=== PATIENT | female | born 1965 | race Caucasian/White ===

== ENCOUNTER → 2017-11-28 | Outpatient (CLI) | payer OTHER ==
[~2017-11-28] MED LIST: IOHEXOL 240 MG/ML 50ML VIAL. ONE; IOHEXOL 300 MG/ML 75 ML VIAL. IV ONE
--- NOTE | 2017-11-28 11:44 | RAD ---
CT ABD PELV W/ORAL IV CONTRAST dated 11/28/2017 11:11 AM Indication:..Abnormal renal function,fatigue,enlarged lymph nodes,hypercalcemia,premenopausal.No surgery to abdomen. reduced dose 60ml [id number] per dept. protocol. 30ml OMNI 240 in [place]
. Comparison: No comparison is available. Technique: Contiguous axial imaging of the abdomen and pelvis performed after the administration of 60 cc Omnipaque 300. One or more of the following individualized dose reduction techniques were utilized for this examination: 1. Automated exposure control 2. Adjustment of the mA and/or kV according to patient size 3. Use of iterative reconstruction technique Findings: Images of lung bases show patchy airspace disease in the bilateral lower lobes with areas of vague nodular pleural thickening bilaterally. Heart size within normal limits. No pleural or pericardial effusion. Liver, spleen, pancreas, adrenal glands and kidneys are unremarkable. No hydronephrosis. There is mild wall thickening of the gallbladder, nonspecific. Partially opacified GI tract normal in caliber and contour. No focal bowel wall thickening. No inflammatory stranding in the mesentery. No ascites or lymphadenopathy. Abdominal aorta normal in caliber. Images of pelvis show moderately distended urinary bladder. Uterus and adnexa are unremarkable. No free pelvic fluid or pelvic lymphadenopathy. Bone windows show no acute findings. Small umbilical hernia containing only fat. IMPRESSION: 1. Patchy bibasilar airspace disease, atelectasis versus pneumonia. There are associated areas of nodular pleural thickening for which follow-up imaging after treatment is recommended to ensure resolution. 2. Otherwise no acute abnormality of abdomen or pelvis. Normal appendix. 3. Mild wall thickening of the gallbladder, nonspecific. 4. Distended urinary bladder. Electronically signed by: Bunny Barrientos MD (11/28/2017 11:41 AM) [id number]
== END | disposition home or self-care (01) ==
LOC: CT 09:32
PROVIDERS: ATTEND Family Medicine
DX: N32.89 Other specified disorders of bladder (principal); K42.9 Umbilical hernia without obstruction or gangrene
CPT/HCPCS: 74177; Q9966; Q9967